=== PATIENT | male | born 1980 | race Caucasian/White ===

== ENCOUNTER 2019-03-03 06:10 | Day surgery (SDC) | payer OTHER ==
[~2019-03-03] VITALS: Ht 185.4 cm; Wt 130.0 kg
[~2019-03-03 06:10] MED LIST: CETI5 PO; FLONASE ALLERG9.9 ML
[2019-03-03] MEDS ORDERED: Norco 5-325 Ta1 EACH PO (07:02)
[2019-03-03] MEDS ORDERED: PROM25 PO (07:02)
[2019-03-03] MEDS ORDERED: CLAR500 PO (07:03)
[2019-03-03] MEDS ORDERED: PRED20 (07:03)
[2019-03-03] MEDS ORDERED: MOMENI (07:05)
--- NOTE | 2019-03-03 13:14 | NUR ---
03/03/19 1314 Kim Cartwright DC INSTRUCTIONS REVIEWED W/PT AND HIS GF GRACIE. STATES HAS ALL MEDS AND SINUS RINSE KIT AT HOME AND KNOWS HOW TO USE IT. PT TOLERATED FLUIDS WELL. DSG CHANGED PRIOR TO HOME, W/SMALL AMT OF BLEEDING NOTED. MUSTACHE DSG W/WALLACE IN PLACE. WC TO CAR W/SBA X1 OSCAR WELL
== END 2019-03-03 13:01 | disposition home or self-care (01) ==
LOC: ORSCSDS 06:10
PROVIDERS: Otolaryngology
PROC: 09DQ4ZZ Extraction of Right Maxillary Sinus, Percutaneous Endoscopic Approach (ICD-10-PCS; principal; 2019-03-03 07:30)
PROC: 09BL4ZZ Excision of Nasal Turbinate, Percutaneous Endoscopic Approach (ICD-10-PCS; principal; 2019-03-03 07:30)
PROC: 8E09XBZ Computer Assisted Procedure of Head and Neck Region (ICD-10-PCS; principal; 2019-03-03 07:30)
PROC: 09SM0ZZ Reposition Nasal Septum, Open Approach (ICD-10-PCS; principal; 2019-03-03 07:30)
PROC: 09DR4ZZ Extraction of Left Maxillary Sinus, Percutaneous Endoscopic Approach (ICD-10-PCS; principal; 2019-03-03 07:30)
DX: J32.4 Chronic pansinusitis (principal); J34.2 Deviated nasal septum; G47.33 Obstructive sleep apnea (adult) (pediatric); I10 Essential (primary) hypertension; E66.01 Morbid (severe) obesity due to excess calories; Z68.37 Body mass index [BMI] 37.0-37.9, adult
CPT/HCPCS: 88305; 88311; C2625; J1100; J2250; J2405; J2704; J3010; J7120